=== PATIENT | male | born 2005 | race Caucasian/White ===

== ENCOUNTER 2024-06-28 05:57 | Day surgery (SDC) | payer OTHER, SELFPAY ==
[2024-06-28] VITALS (14 sets, daily range): BP systolic 90–131; BP diastolic 44–86; BMI 20.8
[2024-06-28] MEDS: NORMOSOL-R/PLASMALYTE-A 1000 IV (06:27)
[2024-06-28] MEDS: TYLENOL 1000 MG PO (06:27)
[2024-06-28] MEDS: SUBLIMAZE 25 MCG IV (09:59)
[2024-06-28] MEDS: TYLENOL 650 MG PO (12:24)
== END 2024-06-28 13:04 | disposition home or self-care (01) ==
LOC: SDS 05:57
PROVIDERS: ATTENDING PHYSICIAN Surgery
DX: K40.90 Unilateral inguinal hernia, without obstruction or gangrene, not specified as recurrent (principal); I86.1 Scrotal varices; D17.6 Benign lipomatous neoplasm of spermatic cord
CPT/HCPCS: 49650; 55550; C1781